=== PATIENT | female | born 1955 | race Caucasian/White ===

== ENCOUNTER → 2020-06-19 | Outpatient (CLI) | payer OTHER ==
--- NOTE | 2020-06-19 15:08 | CT ---
EXAMINATION TYPE: CT abdomen pelvis w con DATE OF EXAM: 06/19/2020 COMPARISON: 5 6 HISTORY: Pain CT DLP: 500 mGycm Automated exposure control for dose reduction was used. CONTRAST: CT scan of the abdomen pelvis is performed , patient injected with 100 mL of Isovue 300. FINDINGS- LUNG BASES-subsegmental consolidation at the left lung base.. LIVER/GB- No gross abnormality is appreciated. PANCREAS- No gross abnormality is seen. SPLEEN- No gross abnormality is seen. ADRENALS- No gross abnormality is seen. KIDNEYS/BLADDER- no hydronephrosis nephrolithiasis or renal mass. BOWEL-small hiatal hernia. Bowel gas pattern nonspecific with extensive retained fecal debris. Append ix normal. Occasional diverticula noted. No inflammatory changes. Assessment of the wall thickness is limited due to the amount of retained debris and lack of any significant contrast within the bowel.. LYMPH NODES- No greater than 1cm abdominal or pelvic lymph nodes areappreciated. OSSEOUS STRUCTURES- No significant abnormality is seen. OTHER- aorta of normal caliber. Mild atherosclerotic changes. IMPRESSION- 1. Nonspecific gas pattern. There is extensive retained fecal debris throughout the colon correlate f or constipation. This limits assessment for wall thickness. Correlate with direct visualization as cl inically warranted. 2. Small hiatal hernia. 3. Mild cardiomegaly with subsegmental basilar consolidation most likely in the basis of atelectasis.
== END | disposition home or self-care (01) ==
LOC: RADCTMAIN 12:32
PROVIDERS: ATTEND Nurse Practitioner Gerontology
DX: K44.9 Diaphragmatic hernia without obstruction or gangrene (principal); K59.09 Other constipation
CPT/HCPCS: 74177; Q9967

== ENCOUNTER → 2021-11-09 | Outpatient (CLI) | payer OTHER ==
--- NOTE | 2021-11-09 09:58 | MM ---
Reason for exam: clinical finding. Last mammogram was performed 9 years and 7 months ago. History: Patient is postmenopausal. Family history of breast cancer in mother at age 60, breast cancer in maternal aunt at age 42, and breast cancer in paternal grandmother at age 40. Benign stereotactic core biopsy of the right breast, 2018. Indicated problem(s): palpable abnormality in both breasts. Physical Findings: A clinical breast exam by your physician is recommended on an annual basis and results should be correlated with mammographic findings. MG 3D Diag Mammo W/Cad PIO Bilateral CC and MLO view(s) were taken. Prior study comparison: March 27, 2012, CAD bilateral diagnostic mammogram. July 26, 2004, bilateral diagnostic mammogram. The breast tissue is heterogeneously dense. This may lower the sensitivity of mammography. There is no discrete abnormality including area of concern. No significant new findings when compared with previous films. These results were verbally communicated with the patient and result sheet given to the patient on 11/09/21. ASSESSMENT: Incomplete: need additional imaging evaluation, BI-RAD 0 RECOMMENDATION: Ultrasound of both breasts. Manage patient on a clinical basis.
--- NOTE | 2021-11-09 10:24 | USB ---
Reason for exam: additional evaluation requested from abnormal screening. History: Patient is postmenopausal. Family history of breast cancer in mother at age 60, breast cancer in maternal aunt at age 42, and breast cancer in paternal grandmother at age 40. Benign stereotactic core biopsy of the right breast, 2018. US Breast Limited BILAT Right limited breast ultrasound including focal area of concern, retroareolar and axilla demonstrates no cystic or solid lesion seen. Left limited breast ultrasound including focal area of concern, retroareolar and axilla demonstrates no cystic or solid lesion seen. Right scanned 5-6 o'clock, left scanned 4-8 o'clock. These results were verbally communicated with the patient and result sheet given to the patient on 11/09/21. ASSESSMENT: Negative, BI-RAD 1 RECOMMENDATION: Routine screening mammogram of both breasts in 1 year. Manage patient on a clinical basis.
== END | disposition home or self-care (01) ==
LOC: RADMAMWWP 07:58
PROVIDERS: ATTEND Family Medicine
DX: R92.8 Other abnormal and inconclusive findings on diagnostic imaging of breast (principal); Z80.3 Family history of malignant neoplasm of breast; Z78.0 Asymptomatic menopausal state
CPT/HCPCS: 77066; 76642; G0279; 77062

== ENCOUNTER → 2021-11-14 | Outpatient (CLI) | payer OTHER ==
--- NOTE | 2021-11-15 08:00 | ECHOF ---
Referral Reason:R00.2 MEASUREMENTS -------- HEIGHT: 165.1 cm WEIGHT: 51.3 kg BP: 131/79 RVIDd: 2.6 cm (< 3.3) IVSd: 0.9 cm (0.6 - 1.1) LVIDd: 4.4 cm (3.9 - 5.3) LVPWd: 0.8 cm (0.6 - 1.1) IVSs: 1.3 cm LVIDs: 3.2 cm LVPWs: 1.3 cm LA Diam: 2.7 cm (2.7 - 3.8) LAESV Index (A-L): 22.56 ml/m Ao Diam: 2.6 cm (2.0 - 3.7) AV Cusp: 2.1 cm (1.5 - 2.6) MV EXCURSION: 23.688 mm (> 18.000) MV EF SLOPE: 88 mm/s (70 - 150) EPSS: 0.4 cm MV E Juan Daniel: 0.51 m/s MV DecT: 271 ms MV A Juan Daniel: 0.52 m/s MV E/A Ratio: 0.98 FINDINGS -------- Sinus rhythm. This was a technically good study. The left ventricular size is normal. Left ventricular wall thickness is normal. Overall left vent ricular systolic function is mildly impaired with, an EF between 45 - 50 %. The right ventricle is normal in size. Normal LA size by volume 22+/-6 ml/m2. The right atrium is normal in size. Interatrial and interventricular septum intact. The aortic valve is trileaflet, and appears structurally normal. No aortic stenosis or regurgitation. Mild mitral regurgitation is present. The tricuspid valve appears structurally normal. Unable to estimate RVSP due to inadequate TR jet s pectral doppler profile. Trace/mild (physiologic) pulmonic regurgitation. The aortic root size is normal. Normal inferior vena cava with normal inspiratory collapse consistent with estimated right atrial pre ssure of 5 mmHg. There is no pericardial effusion. CONCLUSIONS -------- 1. The left ventricular size is normal. 2. Left ventricular wall thickness is normal. 3. Overall left ventricular systolic function is mildly impaired with, an EF between 45 - 50 %. 4. Mild mitral regurgitation is present. 5. Trace/mild (physiologic) pulmonic regurgitation. 6. There is no pericardial effusion. ASSOCIATE PROFESSOR OF ENGLISH: Swapna Delgado RDCS
== END | disposition home or self-care (01) ==
LOC: RADECHMAIN 16:01
PROVIDERS: ATTEND Family Medicine
DX: I34.0 Nonrheumatic mitral (valve) insufficiency (principal); I37.1 Nonrheumatic pulmonary valve insufficiency
CPT/HCPCS: 93306

== ENCOUNTER → 2021-11-26 | Outpatient (CLI) | payer OTHER ==
[~2021-11-26] MED LIST: REGADENOSON 0.4 MG/5 ML SYRINGE IV PRN
--- NOTE | 2021-11-26 17:51 | NM ---
EXAMINATION TYPE: NM stress lexiscan cardiolite DATE OF EXAM: 11/26/2021 COMPARISON: 08/29/2011 HISTORY: 66-year-old female R07.9, chest pain TECHNIQUE: After the intravenous administration of 10.2 mCi Tc 99m Sestamibi - Cardiolite resting SP ECT images acquired 45 minutes post injection. The patient received 0.4mg Lexiscan, 24.3 mCi Tc 99m Sestamibi - Stress images obtained [address] injection FINDINGS: Review of stress and rest SPECT images demonstrates prominent GI activity adjacent to the inferior wa ll. There is small area of reversibility seen along the inferior apical wall on stress. Additional pa tchy decreased activity along the anterior and inferoseptal basal wall is more pronounced on rest danny ges suggesting attenuation artifact. Gated analysis shows normal wall motion with an estimated left v entricular ejection fraction of 44 %. Given the intensity of inferior GI activity and blooming extend ing into the intraventricular region, this may not be entirely accurate. TID is calculated at 1.07, u pper limits of normal. IMPRESSION: 1. SPECT images suggest small area of reversibility along the apical inferior wall. This is equivocal as the finding is not corroborated on polar maps. 2. Further evaluation should be considered given this finding and also given the fixed defects along the basal anterior and inferoseptal wall. Artifacts are favored but these could represent small old i nfarcts. 3. Also, estimated LVEF is calculated low at 44%. Assessment of LVEF may be limited due to the intens ity of GI activity adjacent to the inferior wall.
== END | disposition home or self-care (01) ==
LOC: RADNMMAIN 08:02
PROVIDERS: ATTEND Family Medicine
DX: R07.9 Chest pain, unspecified (principal)
CPT/HCPCS: 93017; 78452; A9500; J2785

== ENCOUNTER → 2022-02-05 | Outpatient (CLI) | payer OTHER ==
--- NOTE | 2022-02-05 16:07 | BD ---
EXAMINATION TYPE: Axial Bone Density DATE OF EXAM: 02/05/2022 COMPARISON: 2006 CLINICAL HISTORY: 66 years year old Female. ICD-10 CODE: Z78.0 Post menopausal without HRT. Height: 5 FT 5 IN Weight: 112 FRAX RISK QUESTIONS: Alcohol (3 or more units per day): NO Family History (Parent hip fracture): NO Glucocorticoids (More than 3mos): NO (Ex: prednisone, prednisolone, methylprednisolone, dexamethasone, and hydrocortisone). History of Fracture in Adulthood: NO Secondary Osteoporosis: 1. Type 1 Diabetes: NO 2. Hyperthyroidism: NO 3. Menopause before 45: NO 4. Malnutrition: NO 5. Chronic liver disease: NO Rheumatoid Arthritis: NO Current Tobacco Use: FORMER RISK FACTORS HISTORY OF: Surgery to Spine/Hip(right/left)/Wrist (right/left): NO Family History of Osteoporosis: YES Active: YES Diet low in dairy products/other sources of calcium: NO Postmenopausal woman: YES Take estrogen and/or progesterone medications: NO Lost more than 2 inches in height since high school: NO Frequent falls: NO Poor Health: GOOD Hyperparathyroidism: NO Adrenal Insufficiency: NO MEDICATIONS: Thyroid Medications: WAS ON THYROID MEDS NOT CURRENTLY Additional Medications: ANTI DEPRESSANT, OMEPRAZOLE, VIT D, METOPROLOL, ATORVASTATIN, MUSCLE RELAXER , MIRAPEX, TRAZODONE, Additional History: EXAM MEASUREMENTS: Bone mineral densitometry was performed using the [employer] System. Bone mineral density as measured about the Lumbar spine is: ----- L1-L4(G/cm2): 1.125 T Score Values are as follows: ----- L1: -1.7 ----- L2: -1.1 ----- L3: 0.2 ----- L4: 0.3 ----- L1-L4: -0.5 Bone mineral density has: DECREASED -12.1 % since study of: 2006 Bone mineral density about the R hip (g/cm2): 0.648 Bone mineral density about the L hip (g/cm2): 0.849 T Score values are as follows: -----R Neck: -2.8 -----L Neck: -1.4 -----R Total: -2.6 -----L Total: -1.8 Bone mineral density has: DECREASED -19.2 % since study of: 2006 FRAX%s: The graph provided illustrates a 12.9 % chance for a major osteoporotic fx and a 3.6 % chance for the hips probability for fx in 10 years time. IMPRESSION: Osteoporosis (T Score less than -2.5). There is increased fracture risk and therapy is usually indicated based on age. Re-Screen 1-2 years. NOTE: T-SCORE=SD OF THE YOUNG ADULT MEAN.
== END | disposition home or self-care (01) ==
LOC: RADBDWWP 07:59
PROVIDERS: ATTEND Family Medicine
DX: M81.0 Age-related osteoporosis without current pathological fracture (principal); M85.89 Other specified disorders of bone density and structure, multiple sites
CPT/HCPCS: 77080

== ENCOUNTER → 2023-11-14 | Outpatient (CLI) | payer MEDICARE ==
--- NOTE | 2023-11-14 14:16 | USB ---
Reason for Exam: Clinical finding. Patient History: Menarche at age 14. First Full-Term at age 18. Postmenopausal. Patient has history of breast feeding. 2018, Benign Stereotactic Core Biopsy on the right side. Paternal grandmother had breast cancer, age 40. Maternal aunt had breast cancer, age 42. Mother had breast cancer, age 60. Risk Values: Destinee 5 year model risk: 3.7%. NCI Lifetime model risk: 12.8%. Technique: Method: Whole Breast Handheld. Prior Study Comparison: 07/26/2004 Bilateral Diagnostic Mammogram, [facility]. 03/27/2012 Bilateral Diagnostic Mammogram, [facility]. 11/09/2021 Bilateral Diagnostic Mammogram, [facility]. Findings: The whole breast of the right breast, the axilla of the right breast and the retroareolar of the right breast were scanned. No solid or cystic masses are identified. Clinical management recommended.. Overall Assessment: Negative, BI-RAD 1 Management: Screening Mammogram of both breasts in 1 year. A clinical breast exam by your physician is recommended on an annual basis and results should be correlated with mammographic findings. This exam should not preclude additional follow-up of suspicious palpable abnormalities. Results were given to the patient verbally at the time of exam. Electronically signed and approved by: Milton Howard M.D. Radiologis
--- NOTE | 2023-11-14 14:38 | CTL ---
EXAMINATION TYPE: CT Low Dose Lung DATE OF EXAM ORDERED: 11/14/2023 HISTORY: . Lung cancer screening CT DLP: 56.[address] CTDI: 1.4 mGy Automated exposure control for dose reduction was used. SCREENING VISIT: Baseline. COMPARISON: None available. TECHNIQUE: Low dose computed tomography scan was performed through the chest at 1 mm thick sections a nd reconstructed images in multiple planes at 1 mm and [address] DIAGNOSTIC QUALITY: Satisfactory FINDINGS: LUNG NODULES: None. LUNGS: COPD: Severity: None Fibrosis: Severity: None Lymph nodes: No adenopathy. Other findings: RIGHT PLEURAL SPACE: Effusion: None Calcification: None Thickening: None Pneumothorax: None LEFT PLEURAL SPACE: Effusion: None Calcification: None Thickening: None Pneumothorax: None HEART: Heart Size: Normal Coronary Calcification: None Pericardial Effusion: None OTHER FINDINGS: Upper abdomen: None Bony thorax: Healing fracture of the anterolateral left fifth rib in the lateral left sixth rib are n oted. There are no acute osseous abnormalities. Supraclavicular region: None Other: None IMPRESSION: Negative lung cancer screening examination for significant pulmonary nodules. CT LUNG RAD AND CT CHEST RECOMMENDATION: Lung-Rad 1 Negative: Continue annual screening with LDCT in 12 months.
--- NOTE | 2023-11-17 09:11 | MM ---
Reason for Exam: Clinical finding. Last mammogram was performed 2 year(s) and 0 month(s) ago. Indicated Problems: Lump or thickening of the right side for 1 Week(s). Patient History: Menarche at age 14. First Full-Term at age 18. Postmenopausal. Patient has history of breast feeding. 2018, Benign Stereotactic Core Biopsy on the right side. Paternal grandmother had breast cancer, age 40. Maternal aunt had breast cancer, age 42. Mother had breast cancer, age 60. Risk Values: Destinee 5 year model risk: 3.7%. NCI Lifetime model risk: 12.8%. Prior Study Comparison: 04/22/2001 Bilateral Screening Mammogram, [facility]. 10/06/2002 Bilateral Diagnostic Mammogram, [facility]. 10/22/2002 Right Special View Mammogram, [facility]. 07/26/2004 Bilateral Diagnostic Mammogram, [facility]. 03/27/2012 Bilateral Diagnostic Mammogram, [facility]. 03/27/2012 Left Diagnostic Ultrasound, [facility]. 11/09/2021 Bilateral Diagnostic Mammogram, [facility]. 11/09/2021 Bilateral Diagnostic Ultrasound, [facility]. Tissue Density: The breasts are heterogeneously dense, which may obscure small masses. Findings: Analyzed By CAD. Microclip right breast from prior biopsy. No significant change from prior exam. No persisting abnormality on 3-D images. Ultrasound recommended for the patient's right-sided palpable site. Overall Assessment: Incomplete: need additional imaging evaluation, BI-RAD 0 Management: Diagnostic Breast Ultrasound of the right breast. See note below in regards to patient's increased 5 year Destinee score. Note on Destinee scores and lifetime risk: 1. A Destinee score greater than 3% is considered moderate risk. If this is the case, consider specialist referral to assess eligibility for a risk reducing agent. 2. If overall lifetime risk for the development of breast cancer is 20% or higher, the patient may qualify for future screening with alternating mammogram and breast MRI. Electronically signed and approved by: Kay Bardales M.D. Radiologist
== END | disposition home or self-care (01) ==
LOC: RADMAMWWP 13:06
PROVIDERS: ATTEND Family Medicine
DX: Z12.2 Encounter for screening for malignant neoplasm of respiratory organs (principal); F17.210 Nicotine dependence, cigarettes, uncomplicated; N63.31 Unspecified lump in axillary tail of the right breast; Z80.3 Family history of malignant neoplasm of breast; Z78.0 Asymptomatic menopausal state
CPT/HCPCS: 71271; 77062; 77066

== ENCOUNTER → 2024-02-12 | Outpatient (CLI) | payer MEDICARE ==
--- NOTE | 2024-02-12 20:08 | BD ---
EXAMINATION TYPE: Axial Bone Density DATE OF EXAM: 02/12/2024 CLINICAL HISTORY: 68 years old Female. ICD-10 CODE: M85.9 DISORDER OF BONE DENSITY Height: 64 in Weight: 120 lbs FRAX RISK QUESTIONS: History of Fracture in Adulthood: left ribs age 68 Secondary Osteoporosis: Current Tobacco Use: yes pt takes evista EXAM MEASUREMENTS: Bone mineral densitometry was performed using the [employer] System. Bone mineral density as measured about the Lumbar spine is: ----- L1-L4(G/cm2): 1.143 T Score Values are as follows: ----- L1: -1.7 ----- L2: -0.8 ----- L3: 0.0 ----- L4: 0.8 ----- L1-L4: -0.3 Z Score Values are as follows: ----- L1: 0.3 ----- L2: 1.1 ----- L3: 1.9 ----- L4: 2.8 ----- L1-L4: 1.7 Bone mineral density has: Increased 1.6% since study of: 02/05/2022 Bone mineral density about the R hip (g/cm2): 0.726 Bone mineral density about the L hip (g/cm2): 0.746 T Score values are as follows: -----R Neck: -2.1 -----L Neck: -1.4 -----R Total: -2.2 -----L Total: -2.1 Z Score values are as follows: -----R Neck: -0.3 -----L Neck: 0.3 -----R Total: -0.7 -----L Total: -0.5 Bone mineral density has: Increased 1.2% since study of: 02/05/2022 FRAX%s: The graph provided illustrates a 17.7% chance for a major osteoporotic fx and a 5.2% chance f or the hips probability for fx in 10 years time. IMPRESSION: Osteopenia (T Score between -2.5 and -1). There is slightly increased risk of fracture and the patient may be considered for treatment. Re-Screen 2-5 years. NOTE: T-SCORE=SD OF THE YOUNG ADULT MEAN.
== END | disposition home or self-care (01) ==
LOC: RADBDWWP 13:05
PROVIDERS: ATTEND Family Medicine
DX: M85.89 Other specified disorders of bone density and structure, multiple sites (principal)
CPT/HCPCS: 77080

== ENCOUNTER → 2024-12-27 | Outpatient (CLI) | payer MEDICARE ==
[2024-12-27 15:50] LABS: HCT 40.9 % (37.2-46.3); MCHC 31.8 g/dL (32.0-37.0); MCV 94.2 FL (80.0-97.0); Mean Platelet Volume 10.6 FL (9.5-12.2); NRBC Per 100 WBC 0 X 10*3/uL (0.00-0.01); Platelet Count 216 X 10*3/uL (140-440); RBC 4.34 X 10*6/uL (4.10-5.20); RDW 13.2 % (11.5-14.5)
[2024-12-27 15:51] LABS: Basophils # (A) 0.05 X 10*3/uL (0.00-0.10); Basophils % (A) 1.2 %; Eosinophils # (A) 0.18 X 10*3/uL (0.04-0.35); Eosinophils % (A) 4.3 %; Lymphocytes # (A) 1.41 X 10*3/uL (0.90-5.00); Lymphocytes % (A) 33.6 %; Monocytes % (A) 7.1 %; Neutrophils # (A) 2.25 X 10*3/uL (1.80-7.70); Neutrophils % (A) 53.6 %
[2024-12-27 16:24] LABS: BUN/Creat Ratio 17.62 Ratio (12.00-20.00); Blood Urea Nitrogen 14.1 mg/dL (9.0-27.0); Carbon Dioxide 27.2 mmol/L (21.6-31.8); Chloride 104 mmol/L (96-109); Chol/HDL Ratio 3.29 Ratio; Glucose 135 mg/dL (70-110); LDL Cholesterol,Calculated 76.9 mg/dL (0.0-131.0); Potassium 3.8 mmol/L (3.5-5.5); Sodium 142 mmol/L (135-145); VLDL Calculation 19.24 mg/dL (5.00-40.00)
[2024-12-27 16:25] LABS: ALT 14 U/L (8-44); AST 20 U/L (13-35); Albumin/Globulin Ratio 2.22 Ratio (1.60-3.17); Alkaline Phosphatase 48 U/L (41-126); Calcium 8.7 mg/dL (8.7-10.3); Globulin 1.8 g/dL (1.6-3.3); T4, Free (Free Thyroxine) 0.95 ng/dL (0.80-1.80); Total Bilirubin 0.2 mg/dL (0.3-1.2); Total Protein 5.8 g/dL (6.2-8.2)
== END | disposition home or self-care (01) ==
LOC: LABWHC1 11:33
PROVIDERS: ATTEND Family Medicine
DX: G89.4 Chronic pain syndrome (principal); I25.83 Coronary atherosclerosis due to lipid rich plaque; R73.9 Hyperglycemia, unspecified; E78.2 Mixed hyperlipidemia; E03.9 Hypothyroidism, unspecified; D51.9 Vitamin B12 deficiency anemia, unspecified; E55.9 Vitamin D deficiency, unspecified
CPT/HCPCS: 36415; 80053; 80061; 82306; 82607; 83036; 84439; 84443; 85025

== ENCOUNTER → 2024-12-29 | Outpatient (CLI) | payer MEDICARE ==
--- NOTE | 2024-12-29 11:07 | MM ---
Reason for Exam: Screening (asymptomatic). Last mammogram was performed 1 year(s) and 1 month(s) ago. Patient History: Menarche at age 14. First Full-Term at age 18. Postmenopausal. Patient has history of breast feeding. 2018, Benign Stereotactic Core Biopsy on the right side. Maternal grandmother had breast cancer, age 40. Maternal aunt had breast cancer, age 42. Mother had breast cancer, age 60. Risk Values: Destinee 5 year model risk: 3.7%. NCI Lifetime model risk: 12.3%. Prior Study Comparison: 03/27/2012 Bilateral Diagnostic Mammogram, [facility]. 11/09/2021 Bilateral Diagnostic Mammogram, [facility]. 11/14/2023 Bilateral MG 3D diag mammo w/cad PIO, [facility]. Tissue Density: The breasts are heterogeneously dense, which may obscure small masses. Findings: Analyzed By CAD. There is no suspicious group of microcalcifications or new suspicious mass in either breast. Overall Assessment: Negative, BI-RAD 1 Management: Screening Mammogram of both breasts in 1 year. . Patient should continue monthly self-breast exams. A clinical breast exam by your physician is recommended on an annual basis. This exam should not preclude additional follow-up of suspicious palpable abnormalities. Note on Destinee scores and lifetime risk: 1. A Destinee score greater than 3% is considered moderate risk. If this is the case, consider specialist referral to assess eligibility for a risk reducing agent. 2. If overall lifetime risk for the development of breast cancer is 20% or higher, the patient may qualify for future screening with alternating mammogram and breast MRI. [facility], , 12/29/2024 11:04 AM. Electronically signed and approved by: Milton Howard M.D. Radiologis
== END | disposition home or self-care (01) ==
LOC: RADMAMWWP 10:32
PROVIDERS: ATTEND Family Medicine
DX: Z12.31 Encounter for screening mammogram for malignant neoplasm of breast (principal); R92.333 Mammographic heterogeneous density, bilateral breasts; Z78.0 Asymptomatic menopausal state; Z80.3 Family history of malignant neoplasm of breast
CPT/HCPCS: 77063; 77067

== ENCOUNTER → 2025-01-04 | Outpatient (CLI) | payer MEDICARE ==
--- NOTE | 2025-01-04 17:42 | CTL ---
EXAMINATION TYPE: CT Low Dose Lung DATE OF EXAM ORDERED: 01/04/2025 COMPARISON: CT Low Dose Lung 11/14/2023 CLINICAL INDICATION: Female, 69 years old with history of Z12.2, F17.210; [facility], F/u lung screening for nicotine dependence of 1ppd x 22 years, current smoker., Lung cancer screening, History of Smoking/t obacco use. TECHNIQUE: Low dose computed tomography scan was performed through the chest at 1 mm thick sections a nd reconstructed images in multiple planes at 1 mm and [address] DLP: 53.[address] CTDI: 1.3 mGy Automated exposure control for dose reduction was used. CT DIAGNOSTIC QUALITY: Satisfactory FINDINGS: Nodules: No clinically significant pulmonary nodule. LUNGS: COPD: Severity: None Fibrosis: Severity: None Lymph nodes: None Other findings: Linear atelectasis or scarring within the left lower lobe and inferior right upper lo be anteriorly. RIGHT PLEURAL SPACE: Effusion: None Calcification: None Thickening: None Pneumothorax: None LEFT PLEURAL SPACE: Effusion: None Calcification: None Thickening: None Pneumothorax: None HEART: Heart Size: Normal Coronary Calcification: None Pericardial Effusion: None OTHER FINDINGS: Upper abdomen: Nonobstructing right renal 1.1 cm calculus. Bony thorax: Remote healed left anterolateral sixth rib fracture. Supraclavicular region: None Other: Mild atherosclerotic calcification of the aorta and its branches. IMPRESSION: No clinically significant pulmonary nodule. CT LUNG RAD AND CT CHEST RECOMMENDATION: Lung-Rad 1 Negative: Continue annual screening with LDCT in 12 months. S Modifier (other clinically significant findings): None [facility], , 01/04/2025 5:40 PM
== END | disposition home or self-care (01) ==
LOC: RADCTMAIN 15:49
PROVIDERS: ATTEND Family Medicine
DX: Z12.2 Encounter for screening for malignant neoplasm of respiratory organs (principal); F17.210 Nicotine dependence, cigarettes, uncomplicated
CPT/HCPCS: 71271